=== PATIENT | male | born 1995 | race African-American/Black ===

== ENCOUNTER 2017-06-07 10:23 | Emergency (ER) | payer BC ==
[~2017-06-07] VITALS: Ht 185.4 cm; Wt 94.3 kg
[2017-06-07 12:11] LABS: INFLUENZA A VIRAL ANTIGEN NEGATIVE; INFLUENZA B VIRAL ANTIGEN NEGATIVE
[2017-06-07] MEDS ORDERED: MOTRIN800 MG PO (12:35)
[2017-06-07 12:46] VITALS: BP 118/68
== END 2017-06-07 12:48 | disposition home or self-care (01) ==
LOC: EME 10:23
PROVIDERS: Nurse Practitioner Family
DX: B34.9 Viral infection, unspecified (principal); R50.9 Fever, unspecified
CPT/HCPCS: 87502; 99281; 99283